=== PATIENT | male | born 1995 | race African-American/Black ===

== ENCOUNTER 2020-12-04 12:27 | Emergency (ER) | payer SELFPAY ==
[2020-12-04 13:11] VITALS: BP 124/70; PULSE 68; RESP 16; TEMP 36.4; O2SAT 95; BMI 43.2
[2020-12-04 14:00] LABS: Glucose Urine UA NEG (NEG); Leukocyte Esterase Urine 1+ (NEG); Nitrite Urine NEG (NEG); Specific Gravity - Urine >= 1.030 (1.005-1.025); Urine Blood 1+ (NEG); Urine Ketones NEG (NEG); Urine Protein NEG (NEG-TRACE)
[2020-12-04 14:02] LABS: Appearance Urine CLOUDY; Color Urine YELLOW
[2020-12-04 14:36] LABS: Squamous Epithelial Cell Urine 1+ /LPF; WBC Urine 50-75 /HPF (0-4)
--- NOTE | 2020-12-04 15:00 | ED.MALEGU ---
HPI - Male Genitourinary General Chief complaint: Urogenital-Male Stated complaint: Skin irritation Time Seen by Provider: 12/04/20 15:00 Related Data Previous Rx's Medication Instructions Recorded doxycycline hyclate 100 mg PO BID #14 cap 12/04/20 valacyclovir 1,000 mg PO BID #14 tab 12/04/20 Allergies Allergy/AdvReac Type Severity Reaction Status Date / Time No Known Allergies Allergy Verified 12/04/20 13:14 Review of Systems Review of Systems: Constitutional : No Weight loss, No Fever, No Chills, No Night Sweats, No Fatigue, No Malaise ENT/Mouth : No Hearing loss, No Ear Pain, No Nasal Congestion, No Sinus Pain, No Hoarseness, No sore throat, No Rhinorrhea, No Swallowing Difficulty Eyes: No Eye Pain, No Swelling, No Redness, No Foreign Body, No Discharge, No Vision Changes Cardiovascular : No Chest Pain, No SOB, No Dyspnea on Exertion, No Orthopnea, No Edema, No Palpitations Respiratory : No Cough, No Sputum, No Wheezing, No Smoke Exposure, No Dyspnea Gastrointestinal : No Nausea, No Vomiting, No Diarrhea, No Constipation, No abdominal Pain, No Hematochezia, No Melena Genitourinary : no irregular bleeding, No Dysuria, No Urinary Frequency, No Hematuria, No Urinary Incontinence, No Urgency, No Flank Pain, No Urinary Flow Changes, No Hesitancy, rash to tip of the penis Musculoskeletal : No joint pain, No Myalgias, No Joint Swelling Skin : No Skin Lesions, No rash Neuro : No Weakness, No Numbness, No Paresthesias, No Loss of Consciousness, No Dizziness, No Headache Psych : No Anxiety/Panic, No Depression, No SI/HI/AH/VH, No Social Issues, Heme/Lymph: No Bruising, No Bleeding,No Lymphadenopathy Endocrine : No Polyuria, No Polydipsia, No Temperature Intolerance Yes all other systems are reviewed and are negative [facility] Past Medical History Medical History (Updated 12/05/20 @ 00:02 by Triston Rosenthal) No known health problems Social History Social History Advance Directives: No Advance Directives Information Provided: Yes Physical Exam Vital Signs: Vital Signs: Last Vital Signs Temp 97.6 F 12/04/20 13:11 Pulse 68 12/04/20 13:11 Resp 16 12/04/20 13:11 BP 124/70 07/21/21 13:11 Pulse Ox 95 12/04/20 13:11 Body Mass Index 43.2 Const: General: healthy appearing, no acute distress and well developed Nutritional Appearance: well nourished Orientation/consciousness: patient oriented x3 Neck: Neck: Yes normal visual inspection, Yes full ROM and Yes trachea midline Thyroid: Thyroid normal Resp: Auscultation: clear to auscultation bilaterally Cardio: Rate: regular rate Rhythm: regular rhythm GI: Inspection: Yes normal to inspection and No distended Palpation (GI): No hepatosplenomegaly present Auscultation: normal bowel sounds : Other: redness and blisters to tip of the penis, swelling unable to retract the foreskin. Skin: General skin exam: elasticity normal, turgor normal and dry skin Neuro: General: patient oriented x3 Course Course Course Narrative: 24-year-old male is here today for complaining of penile drainage. Patient is a heavy truck technician and reports that last time he had sexual encounter was with his girlfriend over the weekend. Patient denies having any other partners. Patient reports that his girlfriend tested negative for STDs. I will send a urine to evaluate for STDs, slap him for herpes. I will prophylactically treat him for herpes. Patient has small vesicular like rash to the head of the penis. Two round 2 mm size. I will wait for results on the urine and will treat him empirically. Reevaluation(s) Reevaluation #1: Urine positive for gonorrhea negative for chlamydia. I will start him on doxycycline will give him dose of ceftriaxone IM. Herpes pending. Patient will be sent home with script for doxycycline and valacyclovir. Discussed with patient the importance to discuss with his partner. Patient verbalizes understanding of instructions and is agreeable to plan of care. He was given the opportunity to ask questions and all questions answered. MDM - Male Genitourinary Lab Data Labs: Lab Results 12/04/20 12/04/20 Range/Units 13:29 13:29 Urine Color YELLOW Urine Appearance CLOUDY Urine pH 6.0 (5.0-8.0) Ur Specific [place] >= 1.030 H (1.005-1.025) Urine Protein NEG (NEG-TRACE) MG/DL Urine Glucose (UA) NEG (NEG) MG/DL Urine Ketones NEG (NEG) MG/DL Urine Blood 1+ H (NEG) Urine Nitrite NEG (NEG) Ur Leukocyte Esterase 1+ H (NEG) Urine RBC 1-4 (0) /HPF Urine WBC 50-75 H (0-4) /HPF Ur Squamous Epith Cells 1+ /LPF Urine Bacteria NONE /LPF Chlam trachomat DNA PCR NOT DETECTED (Not Detect.) N.gonorrhoeae DNA (PCR) DETECTED A (Not Detect.) Discharge Plan Discharge Clinical Impression: Genital herpes simplex, Sexually transmitted disease Patient Disposition: Home, Self-Care Instructions: Genital Herpes Simplex (ED), Sexually Transmitted Diseases (ED) Additional Instructions: you were seen here today for complaining of penile drainage. You were treated for herpes simplex and gonorrhea. Make sure you talk to partners and stay away from sexual activity. Make sure that you do use protection. You were medicated with antibiotics. you were given a script for antibiotic. Please finish all your antibiotics. You may return to emergency department if your symptoms get worse or if he will experience any additional concerning symptoms. Prescriptions: New doxycycline hyclate 100 mg capsule 100 mg PO BID Qty: 14 RF: 0 valacyclovir 1 gram tablet 1,000 mg PO BID Qty: 14 RF: 0 Interventions: ED Discharge Assessment Last Done: 12/04/20 16:38 Discharge Date/Time: 12/04/20 16:40
[2020-12-04 15:50] LABS: CT PCR NOT DETECTED (Not Detect.); NG PCR DETECTED (Not Detect.)
[2020-12-04] MEDS: cefTRIAXone sodium 500 MG, Lidocaine HCl 1 % MPF 1 ML IM (16:16)
== END 2020-12-04 16:40 | disposition home or self-care (01) ==
PROVIDERS: Nurse Practitioner Family; Emergency Provider Emergency Medicine
DX: A60.01 Herpesviral infection of penis (principal); A54.9 Gonococcal infection, unspecified
CPT/HCPCS: 81001; 81003; 87255; 87491; 87591; 96372; 99283; 99284; J0696